=== PATIENT | female | born 1970 | race African-American/Black ===

== ENCOUNTER 2020-08-25 09:22 | Day surgery (SDC) | payer BC ==
[~2020-08-25] VITALS: Ht 170.2 cm; Wt 92.9 kg
[2020-08-25 10:34] VITALS: BP 146/107; PULSE 79; TEMP 97.8
[2020-08-25] MEDS ORDERED: LOSARTAN/HCT TAB 50- PO (10:38)
[2020-08-25 11:45] VITALS: BP 129/88; PULSE 73
[2020-08-25 12:00] VITALS: BP 139/84; PULSE 65
[2020-08-25 12:15] VITALS: BP 115/93; PULSE 75
--- NOTE | 2020-08-25 12:30 | NUR ---
PT AWAKE AND ORIENTATED. PT STATES, 'HAVING HEARTBURN'. DENIES NAUSEA AT THIS TIME. OFFERED SPRITE. LUNGS CLEAR, HRR, BOWEL SOUNDS PRESENT. WILL CONT TO MONITOR.
--- NOTE | 2020-08-25 12:34 | NUR ---
PT TAKEN PROTONIX AND TOLERATING SPRITE. DENIES PAIN OR NAUSEA AT THIS TIME. IV DC'D AND PT TOLERATED WELL.
--- NOTE | 2020-08-25 13:06 | NUR ---
PT DISCHARGED PER WC INTO FAMILY VEHICLE, DRIVING.
== END 2020-08-25 12:45 | disposition home or self-care (01) ==
LOC: SDCO 09:22
DX: Z12.11 Encounter for screening for malignant neoplasm of colon (principal); Z80.0 Family history of malignant neoplasm of digestive organs; K59.00 Constipation, unspecified; F32.9 Major depressive disorder, single episode, unspecified; K21.9 Gastro-esophageal reflux disease without esophagitis; I10 Essential (primary) hypertension
CPT/HCPCS: J2704; J7030

== ENCOUNTER 2020-09-15 08:40 | Day surgery (SDC) | payer BC ==
[~2020-09-15] VITALS: Ht 170.2 cm; Wt 96.3 kg
[~2020-09-15 08:40] MED LIST: LOSARTAN/HCT TAB 50- PO
[2020-09-15 09:05] VITALS: BP 154/103; PULSE 63; TEMP 96.9
[2020-09-15 09:55] VITALS: BP 143/86; PULSE 66; TEMP 97.1
--- NOTE | 2020-09-15 09:55 | NUR ---
Pt to [facility] via cart from [employer]. Pt awake and alert. Pt ambulates to recliner with stand by assistance. Warm blanket provided. in room. Muffin and coffee provided. Call light within reach.
[2020-09-15 10:10] VITALS: BP 148/90; PULSE 65
--- NOTE | 2020-09-15 10:10 | NUR ---
Pt tolerating food and fluids without difficulties. Denies needs.Call light within reach.
[2020-09-15 10:23] VITALS: BP 147/91; PULSE 68
--- NOTE | 2020-09-15 10:25 | NUR ---
Pt continues to rest. Denies needs. Call light within reach.
[2020-09-15 10:30] VITALS: BP 133/88; PULSE 71
--- NOTE | 2020-09-15 10:45 | NUR ---
Discharge instructions reviewed with pt by MARISA RN. Pt voices understanding. IV site discontinued with all parts intact. Pt up to dress. Call light within reach.
--- NOTE | 2020-09-15 10:55 | NUR ---
Pt escorted to private car via wheel chair. Pt accompanied home by her .
== END 2020-09-15 10:55 | disposition home or self-care (01) ==
LOC: SDCO 08:40
DX: K21.00 Gastro-esophageal reflux disease with esophagitis, without bleeding (principal); K44.9 Diaphragmatic hernia without obstruction or gangrene; K29.60 Other gastritis without bleeding; I10 Essential (primary) hypertension; F32.9 Major depressive disorder, single episode, unspecified
CPT/HCPCS: J7030